=== PATIENT | male | born 1940 | race Caucasian/White ===

== ENCOUNTER 2017-03-16 12:18 | Day surgery (SDC) | payer BC ==
[~2017-03-16] VITALS: Ht 152.4 cm; Wt 63.8 kg
[~2017-03-16 12:18] MED LIST: AMLO-147 PO; ATEN100T PO; ATOR20TA17 PO; CLOP75TA4 PO; ENAL20TA77 PO; FAMO20TA18 PO; HYDR25TA6 PO; METF850T PO
[2017-03-16 13:51] VITALS: Ht 152.4 cm; Wt 63.8 kg
[2017-03-16] MEDS ORDERED: DOXA2TAB PO (14:01)
[2017-03-16] MEDS ORDERED: ASPI81TA3 PO (14:01)
[2017-03-16] MEDS ORDERED: GLIP5TAB13 PO (14:01)
[2017-03-16] MEDS ORDERED: FENTAnyl 50 MCG/ML VIAL ONE (15:35)
[2017-03-16] MEDS ORDERED: PROPOFOL 20 ML ONE (15:35)
[2017-03-16] MEDS ORDERED: MIDAZOLAM 1 MG/ML 2 ML INJ ONE (15:35)
[2017-03-16 15:41] VITALS: BP 147/68; PULSE 72; RESP 20
[2017-03-16 16:55] VITALS: BP 139/72; PULSE 69; RESP 12
--- NOTE | 2017-03-17 05:29 | GILP ---
DATE OF PROCEDURE: 03/16/2017 PROCEDURE: Colonoscopy to cecum. BRIEF HISTORY AND INDICATIONS: The patient is being evaluated for unexplained anemia. PREMEDICATION: Monitored anesthesia care by anesthesiologist. SURGEON: Primo Serrato MD INSTRUMENT USED: Olympus colonoscope. PREPARATION: Adequate. TECHNIQUE: After informed consent, with the patient/relatives understanding the procedure, its indic ations potential risks and complications, including but not limited to: allergic reaction, bleeding, perforation, infection, missed lesions and after all pertinent questions were answered to the patie nt's satisfaction, the patient/relatives signed the witnessed informed consent. Following this, premedication was administered slowly IV push by under careful cardiovascular and re spiratory monitoring with pulse oximetry, automatic blood pressure and twister tender. Once the sedativ e effect was achieved, the patient was placed in the left lateral decubitus position, digital rectal examination was performed. The colonoscope was then introduced and advanced under visual control th roughout all segments of the colon including: the rectum, sigmoid, descending colon, splenic flexure , transverse colon, hepatic flexure, ascending colon and finally reaching the cecum which was clearl y identified by transillumination, finger indentation and the ileocecal valve. Careful examination o f the mucosa of the lower gastrointestinal tract both on insertion as well as withdrawal of the inst rument disclosed the following findings: Rectal Examination: No evidence of perirectal disease, no masses. Colonic Mucosa: The colonic mucosa is essentially unremarkable throughout. The ileocecal valve was clearly identified and appears unremarkable. The instrument was withdrawn, reexamining the mucosa in detail. No additional abnormalities were no gilberto with the exception of moderate sized internal hemorrhoids. The patient tolerated the procedure well and was transferred out of the Endoscopy Suite awake and in good condition to continue recovery under observation. IMPRESSION: Moderate sized internal hemorrhoids. Otherwise, normal colonoscopy to cecum. PLAN: The patient will follow up as an outpatient. Annual Hemoccult stool testing is recommended, and colonoscopy in 10 years is recommended. Dictated By: PRIMO SERRATO MS/DIVYA Conf#: [id number] DID#: [id number]
--- NOTE | 2017-03-17 05:32 | GILP ---
DATE OF PROCEDURE: 03/16/2017 PROCEDURE: Esophagogastroduodenoscopy with snare polypectomy x2 and multiple biopsies. PREMEDICATION: Monitored anesthesia care by anesthesiologist. BRIEF HISTORY AND INDICATIONS: The patient is being evaluated for unexplained anemia. PREMEDICATION: Monitored anesthesia care by anesthesiologist. SURGEON: Primo Serrato MD INSTRUMENT USED: Olympus panendoscope. TECHNIQUE: After informed consent, with the patient/relatives understanding the procedure, its indic ations, potential risks and complications, including but not limited to: allergic reaction, bleeding , perforation or infection, and after all pertinent questions were answered to the patients satisfac tion, the patient/relatives signed witnessed informed consent. Following this, premedication was administered slowly IV push under careful cardiovascular and respi ratory monitoring with pulse oximetry, automatic blood pressure and sales support technician. Once the sedative effect was achieved the patient was place in the left lateral decubitus, the panen doscope was introduced and advanced under visual control. Careful examination of the upper gastrointestinal tract, both on insertion as well as withdrawal of the instrument disclosed the following findings: ESOPHAGUS: The mucosa of the entire esophagus appears within normal limits. There is no evidence of esophagitis, varices, neoplasm or stricture. No hiatal hernia identified. STOMACH: Upon entrance to the stomach, air was insufflated, the gastric donald distended normally. T here are 2 polyps in the area of the fundus of the stomach. One measures 12 mm, is pedunculated in nature, and is oozing at the tip. A second one measuring 6 mm is also oozing. Both polyps were rem ernie with polypectomy snare with no residual bleeding or evidence of complication. A 4 mm sessile p olyp in the antrum was identified, and biopsies were obtained. The consistency of the polyp was ext remely hard raising possibility of carcinoid, although we will have to await histological examinatio n. There is erythema and edema of the mucosa of a moderate degree. Biopsies were obtained to rule out H. pylori infection. PYLORUS: The pylorus appears patent and within normal limits, with no evidence of gastric outlet ob struction. DUODENUM: The duodenal mucosa was carefully examined in the duodenal bulb as well as the second por tion of the duodenum and appears unremarkable with no evidence of duodenitis, ulcer or neoplasm. The instrument was then withdrawn, the patient tolerated the procedure well and was transfer out of the endoscopy suite awake, and in good condition to continue recovery under observation IMPRESSION: 1. A 12 mm pedunculated polyp with active oozing in the fundus of the stomach, snared and retrieved . 2. A 6 mm polyp with oozing in the fundus of the stomach, snared and retrieved. 3. A 4 mm sessile "hard" polyp in the antrum. Biopsies were obtained to rule out carcinoid. 4. Gastritis. Rule out Helicobacter pylori infection. Biopsies obtained. PLAN: The patient will be treated with PPIs. Pathology will be reviewed as soon as available. Fur ther recommendation will depend on the patient's clinical course as well as review of biopsies. Dictated By: PRIMO MOYER Conf#: [id number] DID#: [id number]
== END 2017-03-16 18:16 | disposition home or self-care (01) ==
LOC: GIL 12:18
PROVIDERS: ATTEND Internal Medicine Gastroenterology
DX: D64.9 Anemia, unspecified (principal); I10 Essential (primary) hypertension; E11.9 Type 2 diabetes mellitus without complications; H40.9 Unspecified glaucoma; K31.7 Polyp of stomach and duodenum; K29.50 Unspecified chronic gastritis without bleeding; K64.8 Other hemorrhoids
CPT/HCPCS: 43239; 45378; 82962; 88305; 88312; J2250; J3010; Z7610

== ENCOUNTER 2018-11-23 06:07 | Inpatient (IN) | payer BC ==
[~2018-11-23] VITALS: Ht 152.4 cm; Wt 63.0 kg
[2018-11-23] VITALS (8 sets, daily range): BP systolic 126–168; BP diastolic 66–74; PULSE 65–82; RESP 16–18; Ht 152.4 cm; Wt 63.0 kg
[~2018-11-23 06:07] MED LIST changes: +ASPI-903 PO; -CLOP75TA4 PO; +DOXA2TAB PO; -FAMO20TA18 PO; +GLIP5TAB13 PO; -METF850T PO; +METF850T13 PO
[2018-11-23] MEDS ORDERED: ACETAMINOPHEN 325 MG TAB PO ONE (06:30)
[2018-11-23] MEDS ORDERED: SODIUM CHLORIDE 0.9% 1L BAG IV* STA ×2 (06:35→13:02)
--- NOTE | 2018-11-23 06:38 | ERD ---
ER Documentation Chief Complaint Chief Complaint states "feels like something is stuck in my throat". also c/o cough x3 days HPI This is a 78-year-old male who presents for evaluation of cough, sore throat for the last 3 days. Is a prior history of coronary disease, feels body aches, no nausea vomiting, also endorses sore throat. No chest pain or shortness of breath ROS All systems reviewed and are negative except as per history of present illness. Medications Home Meds Reported Medications Glipizide* (Glipizide*) 5 Mg Tablet, 5 MG PO BID, TAB 03/16/17 Aspirin* (Aspirin* Chew) 81 Mg Tab.chew, 81 MG PO DAILY, TAB.CHEW 03/16/17 Doxazosin Mesylate* (Doxazosin Mesylate*) 2 Mg Tablet, 2 MG PO DAILY, TAB 03/16/17 Hydrochlorothiazide (Hydrochlorothiazide) 25 Mg Tablet, 25 MG PO DAILY 12/23/12 Atorvastatin (Lipitor) 20 Mg Tablet, 20 MG PO DAILY 10/15/12 Amlodipine Besylate* (Amlodipine Besylate*) 10 Mg Tablet, 10 MG PO DAILY 10/15/12 Atenolol* (Atenolol*) 100 Mg Tablet, 100 MG PO DAILY 10/15/12 Enalapril (Enalapril) 20 Mg Tablet, 20 MG PO BID 10/15/12 Metformin Hcl* (Metformin Hcl*) 850 Mg Tablet, 850 MG PO TID 10/15/12 Allergies Allergies: Coded Allergies: No Known Allergies (Verified Allergy, Unknown, 03/16/17) PMhx/Soc History of Surgery: Yes (R INGUINAL HERNIA, COLONOSCOPY, THROAT NODULE REMOVED) Anesthesia Reaction: No Hx Neurological Disorder: No Hx Respiratory Disorders: No Hx Cardiac Disorders: Yes (HTN ) Hx Psychiatric Problems: No Hx Miscellaneous Medical Probl: Yes (POSSIBLE ANGIOPLASTY/GRAM, HIGH CHOLESTEROL) Hx Alcohol Use: No Hx Substance Use: No Hx Tobacco Use: No Physical Exam Vitals Vital Signs Date Temp Pulse Resp B/P (MAP) Pulse Ox O2 O2 Flow FiO2 Time Delivery Rate 11/23/18 95 17 131/83 96 Room Air 07:31 (99) 11/23/18 155 23 131/92 97 Room Air 07:00 (105) 11/23/18 99.2 125 20 125/73 97 06:14 (90) Physical Exam Const: No acute distress Head: Atraumatic Eyes: Normal Conjunctiva ENT: Normal External Ears, Nose and Mouth. Neck: Full range of motion. No meningismus. Resp: Clear to auscultation bilaterally Cardio: Regular rate and rhythm, no murmurs Abd: Soft, non tender, non distended. Normal bowel sounds Skin: No petechiae or rashes Back: No midline or flank tenderness Ext: No cyanosis, or edema Neur: Awake and alert Psych: Normal Mood and Affect Result Diagram: 11/23/1860611/23/18606 Results 24 hrs Laboratory Tests Test 11/23/18 06:07 11/23/18 06:32 11/23/18 06:49 White Blood Count 12.8 10^3/ul Red Blood Count 4.88 10^6/ul Hemoglobin 13.5 g/dl Hematocrit 40.4 % Mean Corpuscular Volume 82.8 fl Mean Corpuscular Hemoglobin 27.7 pg Mean Corpuscular 33.4 g/dl Hemoglobin Concent Red Cell Distribution Width 14.9 % Platelet Count 395 10^3/UL Mean Platelet Volume 10.1 fl Immature Granulocytes % 0.600 % Neutrophils % 76.9 % Lymphocytes % 11.6 % Monocytes % 8.7 % Eosinophils % 1.5 % Basophils % 0.7 % Nucleated Red Blood Cells % 0.0 /100WBC Immature Granulocytes # 0.080 10^3/ul Neutrophils # 9.9 10^3/ul Lymphocytes # 1.5 10^3/ul Monocytes # 1.1 10^3/ul Eosinophils # 0.2 10^3/ul Basophils # 0.1 10^3/ul Nucleated Red Blood Cells # 0.0 10^3/ul Prothrombin Time 13.1 Sec Prothrombin Time Ratio 1.0 INR International 0.98 Normalized Ratio Activated Partial Thromboplast 31.6 Sec Time Sodium Level 139 mmol/L Potassium Level 3.9 mmol/L Chloride Level 99 mmol/L Carbon Dioxide Level 25 mmol/L Anion Gap 15 Blood Urea Nitrogen 10 mg/dl Creatinine 0.78 mg/dl Est Glomerular Filtrat mL/min Rate mL/min Glucose Level 160 mg/dl Calcium Level 9.2 mg/dl Total Bilirubin 0.5 mg/dl Direct Bilirubin 0.00 mg/dl Indirect Bilirubin 0.5 mg/dl Aspartate Amino 28 IU/L Transf (AST/SGOT) Alanine 22 IU/L Aminotransferase (ALT/SGPT) Alkaline Phosphatase 63 IU/L Troponin I < 0.012 ng/ml Total Protein 7.1 g/dl Albumin 4.2 g/dl Globulin 2.90 g/dl Albumin/Globulin Ratio 1.44 Bedside Glucose 168 mg/dL POC Venous Lactate 2.3 mmol/L Current Medications Medications Dose Sig/Yue Start Time Status Last (Trade) Ordered Route PRN Stop Time Admin Dose Reason Admin 650 mg ONCE ONCE 11/23/18 DC 11/23/18 Acetaminophen PO 06:30 06:57 (Tylenol 11/23/18 Tab) 06:33 Sodium 1,000 ml BOLUS OVER 2 11/23/18 DC 11/23/18 Chloride HOURS STAT 06:35 06:58 (NS) IV* 11/23/18 06:37 Diltiazem 15 mg ONCE STAT 11/23/18 DC 11/23/18 HCl IV 06:56 07:23 (Cardizem Iv) 11/23/18 06:57 Ceftriaxone 50 ml @ ONCE ONCE 11/23/18 Sodium 100 mls/hr IVPB 08:00 11/23/18 08:29 Azithromycin 250 ml @ ONCE ONCE 11/23/18 250 mls/hr IVPB 08:00 11/23/18 08:59 Procedures/MDM This is a 78-year-old male who presents for evaluation of cough and congestion. Presented tachycardic and was found to be in atrial fibrillation with rapid ventricular response, he was given diltiazem IV. His heart rate improved to the 90s, initial lactate was noted to be 2.3, he did not have any other signs of sepsis or severe sepsis, he has no focal pneumonia, given his cough and congestion he is being covered empirically with ceftriaxone and Zithromax. The patient will be admitted to Dr. Jones. Critical Care Time: 35 minutes Treatments/Evaluations: Close monitoring and treatment of unstable vital signs, cardiorespiratory, and neurologic status, while maintaining tight balance of fluid, respiratory, and cardiac interventions. This time includes discussing the case with the patient and the patient's family. This time does not include all procedures stated elsewhere in this record. This time also includes reviewing old records, labs and radiological studies. This time includes examining and re- examining the patient. Additionally, this time also includes arranging care with admitting and consulting physicians. Chest X-ray 1V Interpreted by me: Soft Tissue: No acute abnormalities Bones: No acute abnormalities Mediastinum/Cardiac Silhouette/Lungs: No acute abnormalities EKG: Rate/Rhythm: Atrial fibrillation with rapid ventricular response QRS, ST, T-waves: No changes consistent w/ acute ischemia Impression: No evidence of ischemia or arrhythmia Departure Diagnosis: Primary Impression: Cough Additional Impression: Atrial fibrillation Atrial fibrillation type: persistent Qualified Codes: I48.1 - Persistent atrial fibrillation Condition: Stable ERIS HANSEN MD Nov 23, 2018 06:38
[2018-11-23] MEDS ORDERED: DILTIAZEM 25 MG INJ IV STA (06:56)
[2018-11-23] MEDS ORDERED: CEFTRIAXONE 1 GM/50 ML (PMX) 50 ML IVPB ONE (08:00)
[2018-11-23] MEDS ORDERED: AZITHROMYCIN 500MG/NS (PMX) 250 ML IVPB ONE (08:00)
--- NOTE | 2018-11-23 08:51 | HP ---
Date/Time of Note Date/Time of Note DATE: 11/23/18 TIME: 08:44 Assessment/Plan VTE Prophylaxis SCD applied (from Nsg): Yes Pharmacological prophylaxis: LMWH Lines/Catheters IV Catheter Type (from Nrsg): Saline Lock Assessment/Plan Hospital Course SUBJECTIVE: Seen and evaluated patient in ER room 15. Patient with no acute chest pain or palpitation reported. Bedside monitor shows rapid A. fib in 130s. OBJECTIVE: Vital signs-see below PHYSICAL EXAM: Constitutional: Well-developed, adequately built, lying in bed comfortably. Psych: nl mood/affect, no complaints Head: atraumatic, normocephalic Eyes: nl conjunctiva, nl sclera ENMT: mucosa pink and moist, nl external ears & nose Neck: non-tender, supple Respiratory: clear to auscultation, normal air movement Cardiovascular: Irregular rate and rhythm Gastrointestinal: non-tender, soft, bowel sounds active in all 4 quadrants. Musculoskeletal/extremities: nl extremities to inspection, motor strength equal bilaterally, no focal deficit. Normal pulses,no cyanosis, no edema. Neurological: Alert oriented 3,nl speech, nl strength Skin: nl turgor ASSESSMENT/PLAN: 78-year-old male with htn,dyslipidemia,CAD,dm2 with 3-day duration of generalized weakness with cough, orthopnea,sore throat, subjective fevers, found to have A. fib with RVR. 1. Atrial fibrillation with RVR -[id number] -Cardiology consult, cardiac enzymes,TTE -ATC w/ full dose Lovenox. -Beta-hoa for rate control at this time. Patient actually takes Toprol-XL 100 mg daily at home which we will resume.DC cardizem gtt. -Antiarrhythmic agents, JORGE L per cardiology if indicated => Symptoms onset just over 48 hours -Thyroid studies in a.m. 2. SIRS w/ possible URI, likely viral etiology -Supportive care. No indication for antibiotic at this time. 3. Essential hypertension -Resume home medications 4. DMII -A1c -Hold oral agents and insulin in house Accu-Chek DVT prophylaxis: Lovenox-full dose PUD prophylaxis: Not indicated CODE STATUS: Full code Diet: I will keep him n.p.o. except medication if there is plan for JORGE L/cardioversion per cardiology. If not, patient can be resumed on carbohydrate controlled diet. Rest of the management depend on hospital course. Approximately 60 minutes was spent on this history and physical. Patient was seen in collaboration with . Result Diagram: 11/23/18 0607 11/23/18 0607 Results 24hrs Laboratory Tests Test 11/23/18 06:07 11/23/18 06:32 11/23/18 06:49 11/23/18 08:20 White Blood 12.8 H Count Red Blood Count 4.88 Hemoglobin 13.5 L Hematocrit 40.4 L Mean Corpuscular 82.8 Volume Mean Corpuscular 27.7 L Hemoglobin Mean Corpuscular 33.4 Hemoglobin Enma nt Red Cell 14.9 H Distribution Width Platelet Count 395 Mean Platelet 10.1 Volume Immature 0.600 H Granulocytes % Neutrophils % 76.9 Lymphocytes % 11.6 L Monocytes % 8.7 Eosinophils % 1.5 Basophils % 0.7 Nucleated Red 0.0 Blood Cells % Immature 0.080 H Granulocytes # Neutrophils # 9.9 H Lymphocytes # 1.5 Monocytes # 1.1 H Eosinophils # 0.2 Basophils # 0.1 Nucleated Red 0.0 Blood Cells # Prothrombin Time 13.1 Prothrombin Time 1.0 Ratio INR 0.98 International Normalized Ratio Activated 31.6 Partial Thrombop last Time Sodium Level 139 Potassium Level 3.9 Chloride Level 99 Carbon Dioxide 25 Level Anion Gap 15 H Blood Urea 10 Nitrogen Creatinine 0.78 Est Glomerular Filtrat Rate mL/min Glucose Level 160 Calcium Level 9.2 Total Bilirubin 0.5 Direct Bilirubin 0.00 Indirect 0.5 Bilirubin Aspartate Amino 28 Transf (AST/SGOT ) Alanine 22 Aminotransferase (ALT/SGPT) Alkaline 63 Phosphatase Troponin I < 0.012 Total Protein 7.1 Albumin 4.2 Globulin 2.90 Albumin/Globulin 1.44 Ratio Bedside Glucose 168 POC Venous 2.3 *H Lactate Urine Color STRAW Urine Clarity CLEAR Urine pH 7.0 Urine Specific 1.005 [place] Urine Ketones NEGATIVE Urine Nitrite NEGATIVE Urine Bilirubin NEGATIVE Urine NEGATIVE Urobilinogen Urine Leukocyte NEGATIVE Esterase Urine Hemoglobin NEGATIVE Urine Glucose NEGATIVE Urine Total NEGATIVE Protein HPI/ROS Admit Date/Time Admit Date/Time Hx of Present Illness This is a 78-year-old Macedonian-speaking male with a past medical history of CAD, hypertension, diabetes, dyslipidemia, scrotal herniorrhaphy, presented to the emergency room with 3-day duration of cough, orthopnea, subjective fevers, sore throat/nasal congestion and generalized body aches. Patient denied chest pain, palpitation, nausea, vomiting, abdominal pain, diarrhea, dizziness, loss of consciousness, chills, hemoptysis, upper or lower GI bleed episodes or other constitutional symptoms. In the emergency room, patient was noted with atrial fibrillation with rapid ventricular rate up to 155 bpm. Stable blood pressure. Labs with WBC 12,800, otherwise unremarkable. Negative influenza swab study. Chest x-ray with no acute cardiopulmonary abnormalities except for evidence of aortic atherosclerosis. In ER, patient was given a dose of azithromycin and ceftriaxone. He was then given Cardizem 15 mg IV push followed by drip. ROS A 12 point review of system was assessed and is negative other than what is mentioned in the HPI. PMH/Family/Social Past Medical History See HPI Medications Current Medications Azithromycin 250 ml @ 250 mls/hr ONCE ONCE IVPB Last administered on 11/23/18at 08:29; Admin Dose 250 MLS/HR; Start 11/23/18 at 08:00; Stop 11/23/18 at 08:59 Coded Allergies: No Known Allergies (Verified Allergy, Unknown, 03/16/17) Past Surgical History See HPI Social History Denied history of alcohol, smoking or illicit drug use Smoking Status: Never smoker Exam/Review of Systems Vital Signs Vitals Vital Signs Date Temp Pulse Resp B/P (MAP) Pulse Ox O2 O2 Flow FiO2 Time Delivery Rate 11/23/18 95 17 131/83 96 Room Air 07:31 (99) 11/23/18 99.2 06:14 REGINA MORALES NP Nov 23, 2018 08:51
[2018-11-23] MEDS ORDERED: GLUCOSE GEL 15 GRAM TUBE BUCCAL PRN (09:00)
[2018-11-23] MEDS ORDERED: ONDANSETRON 4 MG INJ IV PRN (09:00)
[2018-11-23] MEDS ORDERED: GLUCOSE GEL 15 GRAM TUBE PO PRN ×2 (09:00)
[2018-11-23] MEDS ORDERED: ASPIRIN 81 MG TAB PO SCH (09:00)
[2018-11-23] MEDS ORDERED: LEVALBUTEROL (NEB) 0.31 MG/3 ML AMP HHN PRN (09:00)
[2018-11-23] MEDS ORDERED: ACETAMINOPHEN 325 MG TAB PO PRN (09:00)
[2018-11-23] MEDS ORDERED: morphine 4 MG/ML VIAL IV PRN (09:00)
[2018-11-23] MEDS ORDERED: ENOXAPARIN 80 MG/0.8 ML SYG SC SCH (09:00)
[2018-11-23] MEDS ORDERED: DEXTROSE 50% 50 ML SYRINGE IV PRN ×2 (09:00)
[2018-11-23] MEDS ORDERED: NACL 0.9% 3 ML SYG IV SCH (09:00)
[2018-11-23] MEDS ORDERED: GLUCAGON 1 MG INJ IM PRN (09:00)
[2018-11-23] MEDS ORDERED: SOD CHLORIDE 0.9% 100 ML ONE (09:43)
[2018-11-23] MEDS ORDERED: IODIXANOL LOCM 100 ML BTL ONE (09:43)
[2018-11-23] MEDS: GUAIFENESIN/DM 5ML CUP PO PRN ×3 (10:11→23:37)
--- NOTE | 2018-11-23 10:11 | CONS ---
Date/Time of Note Date/Time of Note DATE: 11/23/18 TIME: 10:02 Assessment/Plan Assessment/Plan Chief Complaint/Hosp Course 78 yo with one week of cough and acute onset of dyspnea and lightheadedness, noted to be in rapid atrial fibrillation, now in NSR. Atrial fibrillation likely secondary to beta hoa withdrawal as patient admits to not taking metoprolol for a couple of days because he didn't feel well. Additional Assessment/Plan Impression: Paroxysmal atrial fibrillation cough, possible viral uri essential hypertension, controlled Recommendations: Echocardiogram ordered, will review Will repeat ekg now that he's in NSR Resume metoprolol Start Eliquis 5 mg po bid, stop enoxaparin Discussed with patient what afib is, and risk of stroke, and dangers of abruptly stopping beta blockers like metoprolol Consultation Date/Type/Reason Admit Date/Time 11/23/2018 Date of Consultation: Nov 23, 2018 Type of Consult cardiology Reason for Consultation atrial fibrillation Requesting Provider: REGINA MORALES NP Hx of Present Illness 78 yo with hypertension, presents with one week of cough, worsening over the past few days. Last night he felt more short of breath and lightheaded which prompted him to come to the ER. Initial EKG in the ED demonstrated afib at 142 bpm. Patient routinely follows with Dr. Navarro Lane for his cardiology care, cannot recall being told that he has an arrhythmia. At present he is c omfortable in bed, with intermittent cough. Cough is not necessarily productive. With the cough, he did not take metoprolol for the past few days. In his daily living he's quite active, walks for exercise up to 30 minutes at a time, last time he walked was about two weeks ago. Denies h/o IA, CVA. Constitutional: no complaints, improved Eyes: no complaints ENT: no complaints Respiratory: cough, shortness of breath, sputum Cardiovascular: No chest pain, No palpitations Gastrointestinal: no complaints Genitourinary: no complaints Musculoskeletal: neck pain Skin: no complaints Neurologic: dizziness Endocrine: no complaints Lymphatic: no complaints Psychological: no complaints, nl mood/affect Immunologic: no complaints Past Medical History Medical History: hypertension Medications Current Medications Diagnostic Test (Pha) (Accu-Chek) 1 XX ; Start 11/24/18 at 02:00 Insulin Glargine (Lantus) 9 units DAILY@0800 SC ; Start 11/23/18 at 09:00 Insulin Aspart (Novolog Insulin Pen) NOVOLOG *MILD* ALGORITHM WITH MEALS BEDTIME SC ; Start 11/23/18 at 12:00 IV Flush (NS 3 ml) 3 ml PER PROTOCOL IV ; Start 11/23/18 at 09:00 Ondansetron HCl (Zofran Inj) 4 mg Q6H PRN IV NAUSEA AND/OR VOMITING; Start 11/23/18 at 09:00 Acetaminophen (Tylenol Tab) 650 mg Q6H PRN PO PAIN LEVEL 1-3 OR FEVER; Start 11/23/18 at 09:00 Morphine Sulfate (morphine) 2 mg Q4H PRN IV SEVERE PAIN LEVEL 7-10; Start at 09:00 Docusate Sodium (Colace) 100 mg Q12 PO ; Start 11/23/18 at 09:00 Enoxaparin Sodium (Lovenox) 65 mg Q12 SC ; Start 11/23/18 at 09:00 Amlodipine Besylate (Norvasc) 10 mg DAILY PO ; Start 11/23/18 at 09:00 Aspirin (Aspirin) 81 mg DAILY PO ; Start 11/23/18 at 09:00 Atorvastatin Calcium (Lipitor) 20 mg DAILY PO ; Start 11/23/18 at 09:00 Doxazosin Mesylate (Cardura) 2 mg DAILY PO ; Start 11/23/18 at 09:00 Hydrochlorothiazide (Hydrochlorothiazide) 25 mg DAILY PO ; Start 11/23/18 at 09:00 Metoprolol Succinate (Toprol Xl) 100 mg DAILY PO ; Start 11/23/18 at 09:00 Lisinopril (Zestril) 20 mg DAILY PO ; Start 11/23/18 at 09:00 Guaifenesin/ Dextromethorphan (Mucinex Dm) 1 tab DAILY PO ; Start 11/23/18 at 09:00 Guaifenesin/ Dextromethorphan (Robitussin Dm Liquid Cup) 10 ml Q4H PRN PO COUGH; Start 11/23/18 at 09:00 Levalbuterol (Xopenex Neb) 0.31 mg Q4H RESP THERAPY PRN HHN SHORTNESS OF BREATH; Start 11/23/18 at 09:00 Miscellaneous Information 1 ea NOTE XX ; Start 11/23/18 at 09:00 Glucose (Glutose) 15 gm Q15M PRN PO DECREASED GLUCOSE; Start 11/23/18 at 09:00 Glucose (Glutose) 22.5 gm Q15M PRN PO DECREASED GLUCOSE; Start 11/23/18 at 09:00 Dextrose (D50w Syringe) 25 ml Q15M PRN IV DECREASED GLUCOSE; Start 11/23/18 at 09:00 Dextrose (D50w Syringe) 50 ml Q15M PRN IV DECREASED GLUCOSE; Start 11/23/18 at 09:00 Glucagon (Glucagen) 1 mg Q15M PRN IM DECREASED GLUCOSE; Start 11/23/18 at 09:00 Glucose (Glutose) 15 gm Q15M PRN BUCCAL DECREASED GLUCOSE; Start 11/23/18 at 09:00 Allergies: Coded Allergies: No Known Allergies (Verified Allergy, Unknown, 03/16/17) Past Surgical History Past Surgical Hx: no surgical history Family History Significant Family History: no pertinent family hx (no premature coronary disease) Social History Alcohol Use: none Smoking Status: Former smoker (quit 30 years ago) Drug Use: none Exam/Review of Systems Vital Signs Vitals Vital Signs Date Temp Pulse Resp B/P (MAP) Pulse Ox O2 O2 Flow FiO2 Time Delivery Rate 11/23/18 98.9 82 18 126/70 98 Room Air 09:11 (88) Exam Constitutional: alert, oriented, well developed Psych: no complaints, nl mood/affect Head: normocephalic, atraumatic Eyes: nl conjunctiva, EOMI, nl lids, nl sclera, PERRL ENMT: nl external ears & nose, nl lips & teeth, nl nasal mucosa & septum Neck: supple; No jvd, No bruits Respiratory: clear to auscultation, normal air movement Cardiovascular: regular rate and rhythm, nl pulses; No murmurs/extra sounds Gastrointestinal: soft, nl liver, spleen, non-tender Musculoskeletal: nl extremities to inspection Extremities: normal pulses; No edema Neurological: nl mental status, nl speech Skin: nl turgor; No rash or lesions Medications Medications Current Medications Diagnostic Test (Pha) (Accu-Chek) 1 ea 02 XX ; Start 11/24/18 at 02:00 Insulin Glargine (Lantus) 9 units DAILY@0800 SC ; Start 11/23/18 at 09:00 Insulin Aspart (Novolog Insulin Pen) NOVOLOG *MILD* ALGORITHM WITH MEALS BEDTIME SC ; Start 11/23/18 at 12:00 IV Flush (NS 3 ml) 3 ml PER PROTOCOL IV ; Start 11/23/18 at 09:00 Ondansetron HCl (Zofran Inj) 4 mg Q6H PRN IV NAUSEA AND/OR VOMITING; Start 11/23/18 at 09:00 Acetaminophen (Tylenol Tab) 650 mg Q6H PRN PO PAIN LEVEL 1-3 OR FEVER; Start 11/23/18 at 09:00 Morphine Sulfate (morphine) 2 mg Q4H PRN IV SEVERE PAIN LEVEL 7-10; Start 11/23/18 at 09:00 Docusate Sodium (Colace) 100 mg Q12 PO ; Start 11/23/18 at 09:00 Enoxaparin Sodium (Lovenox) 65 mg Q12 SC ; Start 11/23/18 at 09:00 Amlodipine Besylate (Norvasc) 10 mg DAILY PO ; Start 11/23/18 at 09:00 Aspirin (Aspirin) 81 mg DAILY PO ; Start 11/23/18 at 09:00 Atorvastatin Calcium (Lipitor) 20 mg DAILY PO ; Start 11/23/18 at 09:00 Doxazosin Mesylate (Cardura) 2 mg DAILY PO ; Start 11/23/18 at 09:00 Hydrochlorothiazide (Hydrochlorothiazide) 25 mg DAILY PO ; Start 11/23/18 at 09:00 Metoprolol Succinate (Toprol Xl) 100 mg DAILY PO ; Start 11/23/18 at 09:00 Lisinopril (Zestril) 20 mg DAILY PO ; Start 11/23/18 at 09:00 Guaifenesin/ Dextromethorphan (Mucinex Dm) 1 tab DAILY PO ; Start 11/23/18 at 09:00 Guaifenesin/ Dextromethorphan (Robitussin Dm Liquid Cup) 10 ml Q4H PRN PO COUGH; Start 11/23/18 at 09:00 Levalbuterol (Xopenex Neb) 0.31 mg Q4H RESP THERAPY PRN HHN SHORTNESS OF BREATH; Start 11/23/18 at 09:00 Miscellaneous Information 1 ea NOTE XX ; Start 11/23/18 at 09:00 Glucose (Glutose) 15 gm Q15M PRN PO DECREASED GLUCOSE; Start 11/23/18 at 09:00 Glucose (Glutose) 22.5 gm Q15M PRN PO DECREASED GLUCOSE; Start 11/23/18 at 09:00 Dextrose (D50w Syringe) 25 ml Q15M PRN IV DECREASED GLUCOSE; Start 11/23/18 at 09:00 Dextrose (D50w Syringe) 50 ml Q15M PRN IV DECREASED GLUCOSE; Start 11/23/18 at 09:00 Glucagon (Glucagen) 1 mg Q15M PRN IM DECREASED GLUCOSE; Start 11/23/18 at 09:00 Glucose (Glutose) 15 gm Q15M PRN BUCCAL DECREASED GLUCOSE; Start 11/23/18 at 09:00 DOYLE LEE Nov 23, 2018 10:11
[2018-11-23] MEDS: METOPROLOL (XL) 100 MG TAB PO SCH (10:12)
[2018-11-23] MEDS: AMLODIPINE 10 MG TAB PO SCH (10:12)
[2018-11-23] MEDS: DOXAZOSIN 2 MG TAB PO SCH (10:13)
[2018-11-23] MEDS: HYDROCHLOROTHIAZIDE 25 MG TAB PO SCH (10:13)
[2018-11-23] MEDS: LISINOPRIL 20 MG TAB PO SCH (10:13)
[2018-11-23] MEDS: ATORVASTATIN 20 MG TAB PO SCH (10:13)
[2018-11-23] MEDS: DOCUSATE SODIUM 100 MG CAP PO SCH ×2 (10:16→21:52)
--- NOTE | 2018-11-23 10:20 | RADRPT ---
Echocardiogram Report Patient Name: BENJA AHUJA Gender: Male Date: 1940 Study Date: 23-Nov-2018 Computer Operations Manager: Joce Dale [facility] Location: [id number] Ref. Physician: REGINA MORALES Quality: Adequate Procedures: Transthoracic echocardiogram with complete 2D, M-Mode, and doppler examination. Indications: Atrial Fibrillation. 2D/M Mode Doppler Measurement Value Normal Ranges Measurement Value Normal Ranges LVIDd 2D 4.4 3.5 - 5.6 cm AV Peak Kenny 1.1 m/sec LVIDs 2D 2.2 2.1 - 4.1 cm AV Peak PG 5.0 mmHg LVPWd 2D 1.0 0.6 - 1.1 cm LVOT Peak Kenny 0.8 m/sec IVSd 2D 1.1 0.6 - 1.1 cm LVOT Peak PG 3.0 mmHg AoR Diam 2D 3.0 2.0 - 3.7 cm MV E Peak Kenny 0.6 m/sec LA/Ao 2D 1 0 - 1 MV A Peak Kenny 1.0 m/sec LA Dimen 2D 3.3 2.3 - 4.0 cm MV E/A 0.7 MV Decel Time 130 msec Lat E` Kenny 0.1 m/sec Lateral E/E` 11.2 MV E/A 0.7 Findings Left Ventricle: Normal left ventricular systolic function. Normal left ventricular cavity size. Mild concentric left ventricular hypertrophy. Ejection fraction is visually estimated at 65 %. Tissue Doppler/Mitral Doppler indices are consistent with impaired relaxation (Stage I diastolic dysfunction). Right Ventricle: Normal right ventricular size. Normal right ventricular systolic function. Left Atrium: The left atrium is normal in size. Right Atrium: The right atrium is normal in size. Mitral Valve: Normal appearance and function of the mitral valve with trace physiologic regurgitation. Aortic Valve: Normal appearance of the aortic valve. No significant aortic stenosis or insufficiency. Tricuspid Valve: Normal appearance of the tricuspid valve. Unable to obtain RVSP due to minimal presence of tricuspid regurgitation. Pulmonic Valve: Pulmonic valve not well visualized. Pericardium: Normal pericardium with no significant pericardial effusion. Aorta: Normal aortic root. IVC: Normal size and normal respiratory collapse consistent with normal right atrial pressure. Conclusions Normal left ventricular systolic function. Grade 1 diastolic dysfunction. Trace mitral regurgitation. Electronically Signed By: Cynthia Layton 23-Nov-2018 10:19:45 -0800 Patient Name: BENJA AHUJA Study Date: 23-Nov-2018 [id number]
[2018-11-23] MEDS: INSULIN GLARGINE [LANTus] (100 UNITS/ML) SYG SC SCH (10:47)
[2018-11-23] MEDS: GUAIFENESIN/DM (SR) TAB PO SCH (11:49)
[2018-11-23] MEDS: INSULIN ASPART [NOVOLOG] 3 ML PEN SC SCH ×3 (12:00→21:00)
--- NOTE | 2018-11-23 13:09 | QN ---
Documentation Comment Patient with lactic acid 2.4. Most likely, from URI. At this time, we will give him some IV fluids and will put on p.o. Zithromax. Will repeat lactic acid and obtain a rapid strep. She denies any collaboration with . REGINA MORALES NP Nov 23, 2018 13:09
[2018-11-23] MEDS: APIXABAN 5 MG TABLET PO SCH ×2 (13:18→21:52)
--- NOTE | 2018-11-23 15:30 | NUR ---
CM NOTE RECEIVED ORDER TO SEE IF ELIQUIS IS COVERED , CM FORWARD PRESCRIPTION TO [facility] AND ALSO TO [facility] AND PER [facility] THE ELIQUIS IS COVERED. DAMRAIS GLORIA RN,CCM EXT [id number]
--- NOTE | 2018-11-23 17:58 | NUR ---
EOSS: Pt admitted from ER, c/o SOB, worsening cough over last 3 days. dx: Afib. Pt AO x 4, SR on tele, O2 Sat WNL on RA. Ambulates, steady. No acute distress, Stable for handoff to oncoming shift.
--- NOTE | 2018-11-23 21:30 | NUR ---
Utilized phone translation service for research clerk #[phone] in order to assess patient needs, answer questions, and explain medications and side effects. Patient states that he is comfortable at this time; denies pain. Will continue to monitor and assess.
[2018-11-24] VITALS (13 sets, daily range): BP systolic 117–165; BP diastolic 66–78; PULSE 69–123; RESP 17–20
[2018-11-24] MEDS: ACCU-CHEK XX SCH (02:00)
--- NOTE | 2018-11-24 06:36 | NUR ---
EOSS: Pt A&O x 4. VSS. Robitussin administered for intermittent cough. No current s/s of distress, resting in bed comfortably. Fall precautions maintained. Hourly rounding performed. Call light within reach; instructed pt to call for assistance as needed. Pt clean and dry; all needs and concerns attended to. Will endorse pt to AM RN for continuity of care.
[2018-11-24] MEDS: INSULIN ASPART [NOVOLOG] 3 ML PEN SC SCH ×4 (08:00→20:01)
[2018-11-24] MEDS: APIXABAN 5 MG TABLET PO SCH ×2 (08:03→20:02)
[2018-11-24] MEDS: ATORVASTATIN 20 MG TAB PO SCH (08:03)
[2018-11-24] MEDS: DOCUSATE SODIUM 100 MG CAP PO SCH ×2 (08:03→20:01)
[2018-11-24] MEDS: GUAIFENESIN/DM (SR) TAB PO SCH (08:03)
[2018-11-24] MEDS: DOXAZOSIN 2 MG TAB PO SCH (08:04)
[2018-11-24] MEDS: HYDROCHLOROTHIAZIDE 25 MG TAB PO SCH (08:04)
[2018-11-24] MEDS: AMLODIPINE 10 MG TAB PO SCH (08:04)
[2018-11-24] MEDS: METOPROLOL (XL) 100 MG TAB PO SCH (08:04)
[2018-11-24] MEDS: LISINOPRIL 20 MG TAB PO SCH (08:04)
[2018-11-24] MEDS: INSULIN GLARGINE [LANTus] (100 UNITS/ML) SYG SC SCH (08:10)
[2018-11-24] MEDS: AZITHROMYCIN 250 MG TAB PO SCH (08:15)
--- NOTE | 2018-11-24 09:12 | NUR ---
RN Notes: Notified by Sqeeqee, pt converted to afib-120's, upon pt assessment, in no acute distress, denies chest pain, VSS. Left message for Dr. Layton. Awaiting callback. Addendum: 11/24/18 at 0919 by FABY STEVEN RN Received callback from Dr. Layton, no new orders received.
--- NOTE | 2018-11-24 10:14 | PN ---
Date/Time of Note Date/Time of Note DATE: 11/24/18 TIME: 10:11 Assessment/Plan VTE Prophylaxis Risk score (from Ns)>0 risk: 4 SCD applied (from Ns): Yes Pharmacological prophylaxis: apixaban Lines/Catheters IV Catheter Type (from Nrsg): Saline Lock Urinary Cath still in place: No Assessment/Plan Hospital Course SUBJECTIVE: Patient went back to A. fib with RVR this morning at 8:30. Currently rate is controlled. He is also with increased throat pain and difficulty swallowing with pain. OBJECTIVE: Vital signs-see below PHYSICAL EXAM: Constitutional: Well-developed, adequately built, lying in bed comfortably. Psych: nl mood/affect, no complaints Head: atraumatic, normocephalic Eyes: nl conjunctiva, nl sclera ENMT: Red/erythematous throat. +Lymphadenopathy bilaterally. nl external ears & nose Neck: non-tender, supple Respiratory: clear to auscultation, normal air movement Cardiovascular: Irregular rate and rhythm Gastrointestinal: non-tender, soft, bowel sounds active in all 4 quadrants. Musculoskeletal/extremities: nl extremities to inspection, motor strength equal bilaterally, no focal deficit. Normal pulses,no cyanosis, no edema. Neurological: Alert oriented 3,nl speech, nl strength Skin: nl turgor ASSESSMENT/PLAN: 78-year-old male with htn,dyslipidemia,CAD,dm2 with 3-day duration of generalized weakness with cough, orthopnea,sore throat, subjective fevers, found to have A. fib with RVR. 1. Atrial fibrillation with RVR -[id number] -Cont Toprol-XL for rate control and anticoagulation with Eliquis. -Follow-up cardiology recommendations. 2.URI W/ acute pharyngitis. Viral versus strep pharyngitis -Today throat pain got worse a little bit. No leukocytosis or fevers. -At this time, we recommend starting amoxicillin p.o.. cont.Zithromax w/stop date placed. -Obtain a rapid strep test. 3. Status post sepsis (POA) likely secondary to #2. -Cultures negative to date so far. Will follow-up final cultures. 4. Essential hypertension -Stable. Continue home medications 4. DMII -Stable glycemic trends. Continue Accu-Cheks/insulin hospital DVT prophylaxis: Eliquis. PUD prophylaxis: Not indicated CODE STATUS: Full code Diet: Carbohydrate controlled diet Disposition: Patient was admitted for A. fib and was converted to sinus rhythm yesterday. However, this morning he went back to A. fib with RVR of 123. We will follow-up cardiology recommendations. Continue current medical management. Patient was seen in collaboration with Result Diagram: 11/24/18 0518 11/24/18 0518 Results 24hrs Laboratory Tests Test 11/23/18 10:18 11/23/18 11:16 11/23/18 12:01 11/23/18 14:25 Bedside Glucose 105 121 Lactic Acid 2.3 *H Level Creatine Kinase 226 H Creatine Kinase 0.5 Index Creatinine 1.19 Kinase MB (Mass) Troponin I < 0.012 Test 11/23/18 17:10 11/23/18 18:24 11/23/18 21:43 11/24/18 05:18 Bedside Glucose 127 116 Lactic Acid 1.4 Level Creatine Kinase 287 H Creatine Kinase 0.5 Index Creatinine 1.31 Kinase MB (Mass) Troponin I < 0.012 White Blood 9.2 # Count Red Blood Count 4.35 L Hemoglobin 12.0 L Hematocrit 36.1 L Mean Corpuscular 83.0 Volume Mean Corpuscular 27.6 L Hemoglobin Mean Corpuscular 33.2 Hemoglobin Enma nt Red Cell 15.1 H Distribution Width Platelet Count 337 Mean Platelet 10.3 Volume Immature 0.700 H Granulocytes % Neutrophils % 57.3 Lymphocytes % 21.9 Monocytes % 16.2 H Eosinophils % 2.8 Basophils % 1.1 Nucleated Red 0.0 Blood Cells % Immature 0.060 H Granulocytes # Neutrophils # 5.3 Lymphocytes # 2.0 Monocytes # 1.5 H Eosinophils # 0.3 Basophils # 0.1 Nucleated Red 0.0 Blood Cells # Sodium Level 138 Potassium Level 4.0 Chloride Level 99 Carbon Dioxide 28 Level Anion Gap 11 Blood Urea 14 Nitrogen Creatinine 0.87 Est Glomerular Filtrat Rate mL/min Glucose Level 125 Calcium Level 8.9 Phosphorus Level 3.8 Magnesium Level 2.0 Total Bilirubin 0.2 Direct Bilirubin 0.00 Indirect 0.2 Bilirubin Aspartate Amino 31 Transf (AST/SGOT ) Alanine 22 Aminotransferase (ALT/SGPT) Alkaline 52 Phosphatase Total Protein 6.3 Albumin 3.7 Globulin 2.60 Albumin/Globulin 1.42 Ratio Triglycerides 90 Level Cholesterol 73 L Level LDL Cholesterol, 27 Calculated HDL Cholesterol 28 L Cholesterol/HDL 2.6 Ratio Thyroid 0.536 Stimulating Hormone (TSH) Test 11/24/18 07:57 Bedside Glucose 119 Exam/Review of Systems Vital Signs Vitals Vital Signs Date Temp Pulse Resp B/P (MAP) Pulse Ox O2 O2 Flow FiO2 Time Delivery Rate 11/24/18 123 08:35 11/24/18 98.9 20 155/77 94 Room Air 07:25 (103) Intake and Output 11/23/18 11/23/18 11/24/18 1414:59 22:59 06:59 IntakeIntake Total 250 ml 2570 ml 350 ml BalanceBalance 250 ml 2570 ml 350 ml Medications Medications Current Medications Diagnostic Test (Pha) (Accu-Chek) 1 XX ; Start 11/24/18 at 02:00 Insulin Glargine (Lantus) 9 units DAILY@0800 SC Last administered on 11/24/18at 08:10; Admin Dose 9 UNITS; Start 11/23/18 at 09:00 Insulin Aspart (Novolog Insulin Pen) NOVOLOG *MILD* ALGORITHM WITH MEALS BEDTIME SC ; Start 11/23/18 at 12:00 IV Flush (NS 3 ml) 3 ml PER PROTOCOL IV ; Start 11/23/18 at 09:00 Ondansetron HCl (Zofran Inj) 4 mg Q6H PRN IV NAUSEA AND/OR VOMITING; Start 11/23/18 at 09:00 Acetaminophen (Tylenol Tab) 650 mg Q6H PRN PO PAIN LEVEL 1-3 OR FEVER; Start 11/23/18 at 09:00 Morphine Sulfate (morphine) 2 mg Q4H PRN IV SEVERE PAIN LEVEL 7-10; Start 11/23/18 at 09:00 Docusate Sodium (Colace) 100 mg Q12 PO Last administered on 11/24/18at 08:03; Admin Dose 100 MG; Start 11/23/18 at 09:00 Amlodipine Besylate (Norvasc) 10 mg DAILY PO Last administered on 11/24/18at 08:04; Admin Dose 10 MG; Start 11/23/18 at 09:00 Atorvastatin Calcium (Lipitor) 20 mg DAILY PO Last administered on 11/24/18at 08:03; Admin Dose 20 MG; Start 11/23/18 at 09:00 Doxazosin Mesylate (Cardura) 2 mg DAILY PO Last administered on 11/24/18at 08:04; Admin Dose 2 MG; Start 11/23/18 at 09:00 Hydrochlorothiazide (Hydrochlorothiazide) 25 mg DAILY PO Last administered on 11/24/18at 08:04; Admin Dose 25 MG; Start 11/23/18 at 09:00 Metoprolol Succinate (Toprol Xl) 100 mg DAILY PO Last administered on 11/24/18at 08:04; Admin Dose 100 MG; Start 11/23/18 at 09:00 Lisinopril (Zestril) 20 mg DAILY PO Last administered on 11/24/18at 08:04; Admin Dose 20 MG; Start 11/23/18 at 09:00 Guaifenesin/ Dextromethorphan (Mucinex Dm) 1 tab DAILY PO Last administered on 11/24/18at 08:03; Admin Dose 1 TAB; Start 11/23/18 at 09:00 Guaifenesin/ Dextromethorphan (Robitussin Dm Liquid Cup) 10 ml Q4H PRN PO COUGH Last administered on 11/23/18at 23:37; Admin Dose 10 ML; Start 11/23/18 at 09:00 Levalbuterol (Xopenex Neb) 0.31 mg Q4H RESP THERAPY PRN HHN SHORTNESS OF BR EATH; Start 11/23/18 at 09:00 Miscellaneous Information 1 ea NOTE XX ; Start 11/23/18 at 09:00 Glucose (Glutose) 15 gm Q15M PRN PO DECREASED GLUCOSE; Start 11/23/18 at 09:00 Glucose (Glutose) 22.5 gm Q15M PRN PO DECREASED GLUCOSE; Start 11/23/18 at 09:00 Dextrose (D50w Syringe) 25 ml Q15M PRN IV DECREASED GLUCOSE; Start 11/23/18 at 09:00 Dextrose (D50w Syringe) 50 ml Q15M PRN IV DECREASED GLUCOSE; Start 11/23/18 at 09:00 Glucagon (Glucagen) 1 mg Q15M PRN IM DECREASED GLUCOSE; Start 11/23/18 at 09:00 Glucose (Glutose) 15 gm Q15M PRN BUCCAL DECREASED GLUCOSE; Start 11/23/18 at 09:00 Apixaban (Eliquis) 5 mg BID PO Last administered on 11/24/18at 08:03; Admin Dose 5 MG; Start 11/23/18 at 10:00 Azithromycin (Zithromax) 500 mg DAILY PO Last administered on 11/24/18at 08:15; Admin Dose 500 MG; Start 11/24/18 at 09:00; Stop 11/29/18 at 08:59 REGINA MORALES NP Nov 24, 2018 10:14
[2018-11-24] MEDS: AMOXICILLIN 500 MG CAP PO SCH ×2 (11:23→22:45)
--- NOTE | 2018-11-24 13:01 | RADRPT ---
Vent Rate: 64 bpm RR Interval: 0 msec NV Interval: 186 msec QRS Duration: 80 msec QT Interval: 396 msec QTC Interval: 408 msec P-R-T [place]: 80 - 72 - 78 degrees Normal sinus rhythm Nonspecific T wave abnormality Abnormal ECG Electronically Signed By: Roque Jolley [id number]
[2018-11-24] MEDS: GUAIFENESIN/DM 5ML CUP PO PRN ×2 (14:14→19:44)
[2018-11-24] MEDS ORDERED: METOPROLOL 50 MG TAB PO ONE (15:30)
--- NOTE | 2018-11-24 17:33 | PN ---
Date/Time of Note Date/Time of Note DATE: 11/24/18 TIME: 17:30 Assessment/Plan VTE Prophylaxis Risk score (from Ns)>0 risk: 4 SCD applied (from Ns): Yes Pharmacological prophylaxis: apixaban Lines/Catheters IV C[facility]ter [facility]from [facility] Saline Lock Urinary Cath still in place: No Assessment/Plan Hospital Course 78 yo with one week of cough and acute onset of dyspnea and lightheadedness, noted to be in rapid atrial fibrillation, now in NSR. Atrial fibrillation likely secondary to beta hoa withdrawal. He has had episodes that have recurred here in the hospital that have been asymptomatic. Assessment/Plan Impression: Paroxysmal afib Hypertension, controlled Cough/URI Recommendations: Increase metoprolol succinate to 200 mg daily Continue Eliquis Follow up with his usual care nurse rn Dr. Navarro Lane as an outpatient Workup of cough/URI as per primary team From a cardiac standpoint he is stable for discharge. Result Diagram: 11/24/1851711/24/18517 Results 24hrs Laboratory Tests Test 11/23/18 18:24 11/23/18 21:43 11/24/18 05:18 11/24/18 07:57 Lactic Acid 1.4 Level Creatine Kinase 287 H Creatine Kinase 0.5 Index Creatinine 1.31 Kinase MB (Mass) Troponin I < 0.012 Bedside Glucose 116 119 White Blood 9.2 # Count Red Blood Count 4.35 L Hemoglobin 12.0 L Hematocrit 36.1 L Mean Corpuscular 83.0 Volume Mean Corpuscular 27.6 L Hemoglobin Mean Corpuscular 33.2 Hemoglobin Enma nt Red Cell 15.1 H Distribution Width Platelet Count 337 Mean Platelet 10.3 Volume Immature 0.700 H Granulocytes % Neutrophils % 57.3 Lymphocytes % 21.9 Monocytes % 16.2 H Eosinophils % 2.8 Basophils % 1.1 Nucleated Red 0.0 Blood Cells % Immature 0.060 H Granulocytes # Neutrophils # 5.3 Lymphocytes # 2.0 Monocytes # 1.5 H Eosinophils # 0.3 Basophils # 0.1 Nucleated Red 0.0 Blood Cells # Sodium Level 138 Potassium Level 4.0 Chloride Level 99 Carbon Dioxide 28 Level Anion Gap 11 Blood Urea 14 Nitrogen Creatinine 0.87 Est Glomerular Filtrat Rate mL/min Glucose Level 125 Calcium Level 8.9 Phosphorus Level 3.8 Magnesium Level 2.0 Total Bilirubin 0.2 Direct Bilirubin 0.00 Indirect 0.2 Bilirubin Aspartate Amino 31 Transf (AST/SGOT ) Alanine 22 Aminotransferase (ALT/SGPT) Alkaline 52 Phosphatase Total Protein 6.3 Albumin 3.7 Globulin 2.60 Albumin/Globulin 1.42 Ratio Triglycerides 90 Level Cholesterol 73 L Level LDL Cholesterol, 27 Calculated HDL Cholesterol 28 L Cholesterol/HDL 2.6 Ratio Thyroid 0.536 Stimulating Hormone (TSH) Test 11/24/18 11:24 11/24/18 17:18 Bedside Glucose 164 146 Subjective 24 Hr Interval Summary Free Text/Dictation Patient still coughing but feeling better. He does not feel palpitations. Exam/Review of Systems Vital Signs Vitals Vital Signs Date Temp Pulse Resp B/P (MAP) Pulse Ox O2 O2 Flow FiO2 Time Delivery Rate 11/24/18 86 16:10 11/24/18 99.1 18 138/75 95 Room Air 15:41 (96) Intake and Output 11/23/18 11/23/18 11/24/18 1515:00 23:00 07:00 IntakeIntake Total 250 ml 2570 ml 350 ml BalanceBalance 250 ml 2570 ml 350 ml Exam Constitutional: alert, oriented, well developed Psych: no complaints, nl mood/affect Head: normocephalic, atraumatic Eyes: nl conjunctiva, EOMI, nl lids, nl sclera, PERRL ENMT: nl external ears & nose, nl lips & teeth, nl nasal mucosa & septum Neck: supple, non-tender Respiratory: clear to auscultation, normal air movement Cardiovascular: nl pulses, irregular rhythm Gastrointestinal: soft, non-tender Musculoskeletal: nl extremities to inspection Extremities: No edema Neurological: nl mental status, nl speech Skin: nl turgor; No rash or lesions Medications Medications Current Medications Diagnostic Test (Pha) (Accu-Chek) 1 ea 02 XX ; Start 11/24/18 at 02:00 Insulin Glargine (Lantus) 9 units DAILY@0800 SC Last administered on 11/24/18at 08:10; Admin Dose 9 UNITS; Start 11/23/18 at 09:00 Insulin Aspart (Novolog Insulin Pen) NOVOLOG *MILD* ALGORITHM WITH MEALS BEDTIME SC Last administered on 11/24/18at 11:37; Admin Dose 1 UNIT; Start 11/23/18 at 12:00 IV Flush (NS 3 ml) 3 ml PER PROTOCOL IV ; Start 11/23/18 at 09:00 Ondansetron HCl (Zofran Inj) 4 mg Q6H PRN IV NAUSEA AND/OR VOMITING; Start 11/23/18 at 09:00 Acetaminophen (Tylenol Tab) 650 mg Q6H PRN PO PAIN LEVEL 1-3 OR FEVER; Start 11/23/18 at 09:00 Morphine Sulfate (morphine) 2 mg Q4H PRN IV SEVERE PAIN LEVEL 7-10; Start 11/23/18 at 09:00 Docusate Sodium (Colace) 100 mg Q12 PO Last administered on 11/24/18 08:03; Admin Dose 100 MG; Start 11/23/18 at 09:00 Amlodipine Besylate (Norvasc) 10 mg DAILY PO Last administered on 11/24/18at 08:04; Admin Dose 10 MG; Start 11/23/18 at 09:00 Atorvastatin Calcium (Lipitor) 20 mg DAILY PO Last administered on 11/24/18at 08:03; Admin Dose 20 MG; Start 11/23/18 at 09:00 Doxazosin Mesylate (Cardura) 2 mg DAILY PO Last administered on 11/24/18 08:04; Admin Dose 2 MG; Start 11/23/18 at 09:00 Hydrochlorothiazide (Hydrochlorothiazide) 25 mg DAILY PO Last administered on 11/24/18at 08:04; Admin Dose 25 MG; Start 11/23/18 at 09:00 Lisinopril (Zestril) 20 mg DAILY PO Last administered on 11/24/18at 08:04; Admin Dose 20 MG; Start 11/23/18 at 09:00 Guaifenesin/ Dextromethorphan (Mucinex Dm) 1 tab DAILY PO Last administered on 11/24/18 08:03; Admin Dose 1 TAB; Start 11/23/18 at 09:00 Guaifenesin/ Dextromethorphan (Robitussin Dm Liquid Cup) 10 ml Q4H PRN PO COUGH Last administered on 11/24/18at 14:14; Admin Dose 10 ML; Start 11/23/18 at 09:00 Levalbuterol (Xopenex Neb) 0.31 mg Q4H RESP THERAPY PRN HHN SHORTNESS OF BREATH; Start 11/23/18 at 09:00 Miscellaneous Information 1 ea NOTE XX ; Start 11/23/18 at 09:00 Glucose (Glutose) 15 gm Q15M PRN PO DECREASED GLUCOSE; Start 11/23/18 at 09:00 Glucose (Glutose) 22.5 gm Q15M PRN PO DECREASED GLUCOSE; Start 11/23/18 at 09:00 Dextrose (D50w Syringe) 25 ml Q15M PRN IV DECREASED GLUCOSE; Start 11/23/18 at 09:00 Dextrose (D50w Syringe) 50 ml Q15M PRN IV DECREASED GLUCOSE; Start 11/23/18 at 09:00 Glucagon (Glucagen) 1 mg Q15M PRN IM DECREASED GLUCOSE; Start 11/23/18 at 09:00 Glucose (Glutose) 15 gm Q15M PRN BUCCAL DECREASED GLUCOSE; Start 11/23/18 at 09:00 Apixaban (Eliquis) 5 mg BID PO Last administered on 11/24/18at 08:03; Admin Dose 5 MG; Start 11/23/18 at 10:00 Azithromycin (Zithromax) 500 mg DAILY PO Last administered on 11/24/18at 08:15; Admin Dose 500 MG; Start 11/24/18 at 09:00; Stop 11/29/18 at 08:59 Phenol (Cepastat Lozenge) 1 lozenge Q1H PRN MT SORETHROAT; Start 11/24/18 at 10:30 Amoxicillin (Amoxicillin) 500 mg Q8 PO Last administered on 11/24/18at 11:23; Admin Dose 500 MG; Start 11/24/18 at 11:30 Metoprolol Succinate (Toprol Xl) 200 mg DAILY PO ; Start 11/25/18 at 09:00 DOYLE LEE Nov 24, 2018 17:33
--- NOTE | 2018-11-24 18:19 | NUR ---
EOSS: Pt AO x 4, Afib on tele, O2 Sat WNL on RA. Ambulates, steady. No acute distress. Call light within reach, bed locked and low position, instructed to call for assistance. Stable for handoff to oncoming shift
[2018-11-24] MEDS: CEPASTAT LOZENGE MT PRN (19:44)
--- NOTE | 2018-11-24 20:08 | NUR ---
Patient Update Informed Dr. Perez that the patient has had a low grade temperature since the afternoon, 99.1 F and 99.3 F. Patient was started on Zithromax and Amoxicillin today for a URI. Patient reports feeling warm with 4/10 throat pain. Tylenol, Robitussin and Cespat lozenge administered. Will continue to monitor and assess.
[2018-11-25] VITALS: PULSE 58
[2018-11-25 00:13] VITALS: BP 117/64; PULSE 66; RESP 18
[2018-11-25] MEDS: ACCU-CHEK XX SCH (02:00)
[2018-11-25] MEDS ORDERED: VITAMIN A & D 5 GM OINT PACKET TOP ONE (03:03)
[2018-11-25 03:45] VITALS: BP 118/74; PULSE 59; RESP 18
[2018-11-25] MEDS: GUAIFENESIN/DM 5ML CUP PO PRN (03:52)
[2018-11-25 04:00] VITALS: PULSE 50
--- NOTE | 2018-11-25 05:27 | NUR ---
EOSS: Pt A&O x 4. VSS. AFIB and Sinus Rhythm on the monitor. Patient had a low grade temp of 99.3 F at the beginning of the night, Dr. Perez made aware. Robitussin, Tylenol, and lozenge administered for intermittent cough and throat pain. No current s/s of distress, resting in bed comfortably. Fall precautions maintained. Hourly rounding performed. Call light within reach; instructed pt to call for assistance as needed. Pt clean and dry; all needs and concerns attended to. Will endorse pt to AM RN for continuity of care.
[2018-11-25] MEDS: AMOXICILLIN 500 MG CAP PO SCH ×2 (07:08→13:09)
[2018-11-25] MEDS: CEPASTAT LOZENGE MT PRN (07:08)
[2018-11-25] MEDS: INSULIN ASPART [NOVOLOG] 3 ML PEN SC SCH ×2 (07:43→12:12)
[2018-11-25 07:44] VITALS: BP 143/76; PULSE 67; RESP 22
[2018-11-25 08:16] VITALS: PULSE 65
--- NOTE | 2018-11-25 08:21 | PN ---
Date/Time of Note Date/Time of Note DATE: 11/25/18 TIME: 08:17 Assessment/Plan VTE Prophylaxis Risk score (from Nsg)>0 risk: 5 SCD applied (from Nsg): Yes Pharmacological prophylaxis: apixaban Lines/Catheters IV Catheter Type (from Nrsg): Saline Lock Urinary Cath still in place: No Assessment/Plan Hospital Course 78 yo with one week of cough and acute onset of dyspnea and lightheadedness, with new diagnosis of paroxysmal afib. Assessment/Plan Impression: Paroxysmal afib - rate controlled, asymptomatic Hypertension - controlled URI, improved Recommendations: Home on metoprolol succinate 200 mg po daily, Eliquis 5 mg po bid. No more aspirin Explained this to patient in presence of foreign language interpreter Follow with Dr. Lane, his machine tailer, scheduled for Dec 02 Stable for discharge from a cardiac standpoint Result Diagram: 11/25/18 0459 11/25/18 0459 Results 24hrs Laboratory Tests Test 11/24/18 11:24 11/24/18 17:18 11/24/18 20:00 11/25/18 04:59 Bedside Glucose 164 146 176 White Blood 7.1 # Count Red Blood Count 4.69 L Hemoglobin 12.9 L Hematocrit 38.5 L Mean Corpuscular 82.1 Volume Mean Corpuscular 27.5 L Hemoglobin Mean Corpuscular 33.5 Hemoglobin Enma nt Red Cell 14.8 H Distribution Width Platelet Count 327 Mean Platelet 9.8 Volume Immature 0.700 H Granulocytes % Neutrophils % 41.9 Lymphocytes % 33.9 Monocytes % 18.1 H Eosinophils % 4.4 Basophils % 1.0 Nucleated Red 0.0 Blood Cells % Immature 0.050 H Granulocytes # Neutrophils # 3.0 Lymphocytes # 2.4 Monocytes # 1.3 H Eosinophils # 0.3 Basophils # 0.1 Nucleated Red 0.0 Blood Cells # Sodium Level 136 Potassium Level 3.5 Chloride Level 99 Carbon Dioxide 28 Level Anion Gap 9 Blood Urea 18 Nitrogen Creatinine 0.85 Est Glomerular Filtrat Rate mL/min Glucose Level 148 Hemoglobin A1c 6.4 H Calcium Level 8.7 Magnesium Level 2.0 Test 11/25/18 07:42 Bedside Glucose 117 Subjective 24 Hr Interval Summary Free Text/Dictation Overnight patient had brief afib on telemetry, rate around 70 bpm. This am he is in NSR. He states he feels well, cough is resolved, no soreness in throat, no palpitations, no dyspnea, no pain. Exam/Review of Systems Vital Signs Vitals Vital Signs Date Temp Pulse Resp B/P (MAP) Pulse Ox O2 O2 Flow FiO2 Time Delivery Rate 11/25/18 97.6 67 22 143/76 96 Room Air 07:44 (98) Intake and Output 11/24/18 11/24/18 11/25/18 1515:00 23:00 07:00 IntakeIntake Total 1120 ml 400 ml BalanceBalance 1120 ml 400 ml Exam Constitutional: alert, oriented, well developed Psych: no complaints, nl mood/affect Head: normocephalic, atraumatic Eyes: nl conjunctiva, EOMI, nl lids ENMT: nl external ears & nose, nl lips & teeth Neck: supple; No jvd, No bruits Respiratory: clear to auscultation, normal air movement Cardiovascular: regular rate and rhythm; No murmurs/extra sounds Gastrointestinal: soft, nl liver, spleen, non-tender Musculoskeletal: nl extremities to inspection Extremities: No edema Neurological: nl mental status, nl speech Skin: nl turgor Medications Medications Current Medications Diagnostic Test (Pha) (Accu-Chek) 1 XX ; Start 11/24/18 at 02:00 Insulin Glargine (Lantus) 9 units DAILY@0800 SC Last administered on 11/24/18at 08:10; Admin Dose 9 UNITS; Start 11/23/18 at 09:00 Insulin Aspart (Novolog Insulin Pen) NOVOLOG *MILD* ALGORITHM WITH MEALS BEDTIME SC Last administered on 11/24/18at 17:30; Admin Dose 1 UNIT; Start 11/23/18 at 12:00 IV Flush (NS 3 ml) 3 ml PER PROTOCOL IV ; Start 11/23/18 at 09:00 Ondansetron HCl (Zofran Inj) 4 mg Q6H PRN IV NAUSEA AND/OR VOMITING; Start 11/23/18 at 09:00 Acetaminophen (Tylenol Tab) 650 mg Q6H PRN PO PAIN LEVEL 1-3 OR FEVER Last administered on 11/24/18at 20:02; Admin Dose 650 MG; Start 11/23/18 at 09:00 Morphine Sulfate (morphine) 2 mg Q4H PRN IV SEVERE PAIN LEVEL 7-10; Start 11/23/18 at 09:00 Docusate Sodium (Colace) 100 mg Q12 PO Last administered on 11/24/18at 20:01; Admin Dose 100 MG; Start 11/23/18 at 09:00 Amlodipine Besylate (Norvasc) 10 mg DAILY PO Last administered on 11/24/18at 08:04; Admin Dose 10 MG; Start 11/23/18 at 09:00 Atorvastatin Calcium (Lipitor) 20 mg DAILY PO Last administered on 11/24/18at 08:03; Admin Dose 20 MG; Start 11/23/18 at 09:00 Doxazosin Mesylate (Cardura) 2 mg DAILY PO Last administered on 11/24/18at 08:04; Admin Dose 2 MG; Start 11/23/18 at 09:00 Hydrochlorothiazide (Hydrochlorothiazide) 25 mg DAILY PO Last administered on 11/24/18at 08:04; Admin Dose 25 MG; Start 11/23/18 at 09:00 Lisinopril (Zestril) 20 mg DAILY PO Last administered on 11/24/18at 08:04; Admin Dose 20 MG; Start 11/23/18 at 09:00 Guaifenesin/ Dextromethorphan (Mucinex Dm) 1 tab DAILY PO Last administered on 11/24/18at 08:03; Admin Dose 1 TAB; Start 11/23/18 at 09:00 Guaifenesin/ Dextromethorphan (Robitussin Dm Liquid Cup) 10 ml Q4H PRN PO COUGH Last administered on 11/25/18at 03:52; Admin Dose 10 ML; Start 11/23/18 at 09:00 Levalbuterol (Xopenex Neb) 0.31 mg Q4H RESP THERAPY PRN HHN SHORTNESS OF BREATH; Start 11/23/18 at 09:00 Miscellaneous Information 1 ea NOTE XX ; Start 11/23/18 at 09:00 Glucose (Glutose) 15 gm Q15M PRN PO DECREASED GLUCOSE; Start 11/23/18 at 09:00 Glucose (Glutose) 22.5 gm Q15M PRN PO DECREASED GLUCOSE; Start 11/23/18 at 09:00 Dextrose (D50w Syringe) 25 ml Q15M PRN IV DECREASED GLUCOSE; Start 11/23/18 at 09:00 Dextrose (D50w Syringe) 50 ml Q15M PRN IV DECREASED GLUCOSE; Start 11/23/18 at 09:00 Glucagon (Glucagen) 1 mg Q15M PRN IM DECREASED GLUCOSE; Start 11/23/18 at 09:00 Glucose (Glutose) 15 gm Q15M PRN BUCCAL DECREASED GLUCOSE; Start 11/23/18 at 09:00 Apixaban (Eliquis) 5 mg BID PO Last administered on 11/24/18at 20:02; Admin Dose 5 MG; Start 11/23/18 at 10:00 Azithromycin (Zithromax) 500 mg DAILY PO Last administered on 11/24/18at 08:15; Admin Dose 500 MG; Start 11/24/18 at 09:00; Stop 11/29/18 at 08:59 Phenol (Cepastat Lozenge) 1 lozenge Q1H PRN MT SORETHROAT Last administered on 11/25/18at 07:08; Admin Dose 1 LOZENGE; Start 11/24/18 at 10:30 Amoxicillin (Amoxicillin) 500 mg Q8 PO Last administered on 11/25/18at 07:08; Admin Dose 500 MG; Start 11/24/18 at 11:30 Metoprolol Succinate (Toprol Xl) 200 mg DAILY PO ; Start 11/25/18 at 09:00 DOYLE LEE Nov 25, 2018 08:21
[2018-11-25] MEDS: LISINOPRIL 20 MG TAB PO SCH (08:22)
[2018-11-25] MEDS: ATORVASTATIN 20 MG TAB PO SCH (08:22)
[2018-11-25] MEDS: APIXABAN 5 MG TABLET PO SCH (08:22)
[2018-11-25] MEDS: DOXAZOSIN 2 MG TAB PO SCH (08:22)
[2018-11-25] MEDS: DOCUSATE SODIUM 100 MG CAP PO SCH (08:23)
[2018-11-25] MEDS: AMLODIPINE 10 MG TAB PO SCH (08:23)
[2018-11-25] MEDS: HYDROCHLOROTHIAZIDE 25 MG TAB PO SCH (08:23)
[2018-11-25] MEDS: AZITHROMYCIN 250 MG TAB PO SCH (08:23)
[2018-11-25] MEDS: INSULIN GLARGINE [LANTus] (100 UNITS/ML) SYG SC SCH (08:33)
[2018-11-25] MEDS: GUAIFENESIN/DM (SR) TAB PO SCH (08:39)
[2018-11-25] MEDS ORDERED: METOPROLOL (XL) 100 MG TAB PO SCH (09:00)
--- NOTE | 2018-11-25 09:26 | PDOCDIS ---
Discharge Instructions CONDITION [id number] Patient Condition: [id number] Stable HOME CARE INSTRUCTIONS: [id number] Your diet recommendation is: [id number] Carbohydrate- controlled diet. FOLLOW UP/APPOINTMENTS Follow-up Plan Follow-up with primary care physician in 1 week Follow-up with outpatient systems testing laboratory technician in 1 week REGINA MORALES NP Nov 25, 2018 09:26
[2018-11-25] MEDS ORDERED: AZIT250T13 PO (09:28)
[2018-11-25] MEDS ORDERED: AMOX500C2 PO (09:28)
[2018-11-25] MEDS ORDERED: LISI-471 PO (09:28)
[2018-11-25] MEDS ORDERED: APIX5TAB PO (09:28)
[2018-11-25] MEDS ORDERED: METO-336 PO (09:28)
--- NOTE | 2018-11-25 10:12 | DS ---
Date/Time of Note Date/Time of Note DATE: 11/25/18 TIME: 10:09 Discharge Summary Admission/Discharge Info Admit Date/Time Nov 23, 2018 at 07:51 Discharge Date/Time Discharge Diagnosis 1. Paroxysmal atrial fibrillation 2. Status post upper respiratory infection with possible acute pharyngitis. Resolved. 3. Status post sepsis most likely second secondary to URI/acute pharyngitis. 4. Essential hypertension 5. Type 2 diabetes. Patient Condition: Stable Consults ,Cardiology Procedures 11/23/2018. Chest x-ray. IMPRESSION: No acute cardiopulmonary abnormality. Aortic atherosclerosis. 11/23/2018. 2D echocardiogram. Conclusions Normal left ventricular systolic function. Grade 1 diastolic dysfunction. Trace mitral regurgitation. Electronically Signed By: Cynthia Layton 23-Nov-2018 10:19:45 -0800 Patient Name: BENJA AHUJA Study Date: 23-Nov-2018 [id number] Hospital Course 78-year-old male with htn,dyslipidemia,CAD,dm2 with 3-day duration of generalized weakness with cough, orthopnea,sore throat, subjective fevers, found to have A. fib with RVR. She was given IV Cardizem in the emergency room and was converted to normal sinus rhythm. Apparently, patient was not taking his metoprolol as he was told that it could increase his cough. Most likely, arrhythmia was contributed by not taking high-dose metoprolol at home. However, patient was again found to have paroxysmal atrial fibrillation and he was continued on appropriate anticoagulation. Rate control achieved. Patient was continued on Toprol-XL with dosage adjusted to 200 mg per cardiology recommendations. Hospital course was also noted for upper respiratory infection with acute pharyngitis which responded to amoxicillin and Zithromax. He also had sepsis present on admission most likely contributed by URI. Patient did not have any throat discomfort anymore. He did not have any further cough. Stable blood pressure, stable glycemic trends. Sepsis resolved. Patient with no leukocytosis, fevers, as well as negative cultures. At this time, the patient is medically stable for discharge with outpatient cardiology workup. I have also checked with case management regarding his Eliquis authorization which was approved per ed case manager. Patient was given prescription for all medications including anticoagulation and beta-blockers. He verbalized discharge instructions. Approximately 60 minutes was spent in coordinating the discharge on this patie nt. Patient was seen in collaboration with . Home Meds Active Scripts Metoprolol Succinate* (Toprol XL*) 100 Mg Tab.sr.24h, 200 MG PO DAILY, #30 TAB Prov:MORALES,REGINA V. RESIDENTIAL SUPPORT WORKER 11/25/18 Lisinopril* (Lisinopril*) 20 Mg Tablet, 20 MG PO DAILY, #30 TAB Prov:MORALES,REGINA V. RESIDENTIAL SUPPORT WORKER 11/25/18 Apixaban* (Eliquis*) 5 Mg Tablet, 5 MG PO BID, #60 TAB Prov:MORALES,REGINA V. RESIDENTIAL SUPPORT WORKER 11/25/18 Azithromycin* (Azithromycin*) 250 Mg Tablet, 500 MG PO DAILY for 3 Days, #3 TAB Prov:MORALES,REGINA V. RESIDENTIAL SUPPORT WORKER 11/25/18 Amoxicillin* (Amoxicillin*) 500 Mg Cap, 500 MG PO Q8 for 7 Days, #21 CAP Prov:MORALES,REGINA V. RESIDENTIAL SUPPORT WORKER 11/25/18 Reported Medications Glipizide* (Glipizide*) 5 Mg Tablet, 5 MG PO BID, TAB 03/16/17 Doxazosin Mesylate* (Doxazosin Mesylate*) 2 Mg Tablet, 2 MG PO DAILY, TAB 03/16/17 Hydrochlorothiazide (Hydrochlorothiazide) 25 Mg Tablet, 25 MG PO DAILY 12/23/12 Atorvastatin (Lipitor) 20 Mg Tablet, 20 MG PO DAILY 10/15/12 Amlodipine Besylate* (Amlodipine Besylate*) 10 Mg Tablet, 10 MG PO DAILY 10/15/12 Metformin Hcl* (Metformin Hcl*) 850 Mg Tablet, 850 MG PO TID 10/15/12 Discontinued Reported Medications Aspirin* (Aspirin* Chew) 81 Mg Tab.chew, 81 MG PO DAILY, TAB.CHEW 03/16/17 Atenolol* (Atenolol*) 100 Mg Tablet, 100 MG PO DAILY 10/15/12 Enalapril (Enalapril) 20 Mg Tablet, 20 MG PO BID 10/15/12 Follow-up Plan Follow-up with primary care physician in 1 week Follow-up with outpatient packaging manager in 1 week Primary Care Provider Care Physician No Primary Pending Labs Laboratory Tests Test 11/24/18 11:24 11/24/18 17:18 11/24/18 20:00 11/25/18 04:59 Bedside 164 146 176 Glucose mg/dL (70-220) mg/dL (70-220) mg/dL (70-220) White Blood 7.1 Count 10^3/ul (4.8-1 0.8) Red Blood 4.69 Count 10^6/ul (4.70- 6.10) Hemoglobin 12.9 g/dl (14.0-18. 0) Hematocrit 38.5 % (42.0-52.0) Mean 82.1 Corpuscular fl (82.0-101.0 Volume ) Mean 27.5 Corpuscular pg (29.0-33.0) Hemoglobin Mean 33.5 Corpuscular g/dl (32.0-37. Hemoglobin Conc 0) ent Red Cell 14.8 Distribution % (11.5-14.5) Width Platelet Count 327 10^3/UL (140-4 15) Mean Platelet 9.8 Volume fl (7.4-10.4) Immature 0.700 Granulocytes % % (0.001-0.429 ) Neutrophils % 41.9 % (39.0-77.0) Lymphocytes % 33.9 % (15.0-51.0) Monocytes % 18.1 % (0.0-11.0) Eosinophils % 4.4 % (0.0-7.0) Basophils % 1.0 % (0.0-2.0) Nucleated Red 0.0 Blood Cells % /100WBC (0.0-0 .0) Immature 0.050 Granulocytes # 10^3/ul (0.0-0 .031) Neutrophils # 3.0 10^3/ul (1.6-7 .5) Lymphocytes # 2.4 10^3/ul (0.8-2 .9) Monocytes # 1.3 10^3/ul (0.3-0 .9) Eosinophils # 0.3 10^3/ul (0.0-0 .5) Basophils # 0.1 10^3/ul (0.0-0 .1) Nucleated Red 0.0 Blood Cells # 10^3/ul (0.0-0 .0) Sodium Level 136 mmol/L (135-14 4) Potassium 3.5 Level mmol/L (3.5-5. 1) Chloride Level 99 mmol/L (97-110 ) Carbon Dioxide 28 Level mmol/L (21-31) Anion Gap 9 (5-13) Blood Urea 18 Nitrogen mg/dl (7-20) Creatinine 0.85 mg/dl (0.61-1. 24) Est Glomerular mL/min (>60) Filtrat Rate mL/min Glucose Level 148 mg/dl (70-220) Hemoglobin A1c 6.4 % (0-5.9) Calcium Level 8.7 mg/dl (8.4-10. 2) Magnesium 2.0 Level mg/dl (1.7-2.5 ) Test 11/25/18 07:42 Bedside 117 Glucose mg/dL (70-220) Microbiology Date/Time Source Procedure Growth Status 11/24/18 15:30 Throat Group A Strep Rapid Antigen - Final Complete REGINA MORALES NP Nov 25, 2018 10:12
--- NOTE | 2018-11-25 13:14 | NUR ---
Discharge summary Pt stable for discharge, denies c/o pain no sob or distress noted upon discharge. Prescriptions given, explained medications, translate by magi furniture decals inspector. Pt instructed to f/u w/ PCP and cardiology within 1-2 weeks. Pt verbalized understanding of the given instructions. I'vs removed, tele monitor removed.
== END 2018-11-25 13:00 | disposition home or self-care (01) | DRG 872 ==
LOC: E/R 06:07 → 6WM 07:51
PROVIDERS: ADMIT Internal Medicine; ATTEND Internal Medicine
DX: A41.9 Sepsis, unspecified organism (principal); I48.0 Paroxysmal atrial fibrillation; I25.10 Atherosclerotic heart disease of native coronary artery without angina pectoris; I10 Essential (primary) hypertension; E78.00 Pure hypercholesterolemia, unspecified; J02.9 Acute pharyngitis, unspecified; E11.9 Type 2 diabetes mellitus without complications; Z79.84 Long term (current) use of oral hypoglycemic drugs; Z87.891 Personal history of nicotine dependence; Z79.82 Long term (current) use of aspirin
CPT/HCPCS: 36415; 71045; 80048; 80053; 80061; 81003; 82550; 82553; 82962; 83036; 83605; 83735; 84100; 84443; 84484; 85025; 85610; 85730; 87040; 87086; 87400; 87880; 93005; 93306; 96374; J0456; J0696; J1815; J7030; Q9967